=== PATIENT | female | born 1940 | race Caucasian/White ===

== ENCOUNTER 2023-12-18 11:29 | Day surgery (SDC) | payer MEDICARE, OTHER ==
[2023-12-18] VITALS (12 sets, daily range): BP systolic 95–129; BP diastolic 53–76; PULSE 77–97; RESP 13–24; TEMP 97.9; O2SAT 93–97
[~2023-12-18] VITALS: Ht 165.1 cm; Wt 72.8 kg
[2023-12-18] MEDS ORDERED: fentaNYL/PF 50MCG/1 ML 2ML syringe ONE (11:50)
[2023-12-18] MEDS ORDERED: LIDOcaine 1% (10mg/ml) 2ml vial ONE (11:50)
[2023-12-18] MEDS ORDERED: midazolam 1 mg/ML 2ml injection ONE ×2 (11:50→12:53)
[2023-12-18] MEDS ORDERED: verapamil 2.5 mg/ml inj IV ONE (11:50)
[2023-12-18] MEDS ORDERED: heparin 1,000unit/ml 10ml vial 10 ML ONE (11:51)
[2023-12-18] MEDS ORDERED: nitroGLYCERIN 500mcg/5mL D5W 5 ML IV ONE (11:51)
[2023-12-18] MEDS ORDERED: iohexol 350MG/ML 100ml bottle IV ONE (11:51)
[2023-12-18] MEDS ORDERED: HYDR-3973 PO (12:06)
[2023-12-18] MEDS ORDERED: AMLO5TAB PO (12:06)
[2023-12-18] MEDS ORDERED: ONDA4TAB12 PO (12:06)
[2023-12-18] MEDS ORDERED: MELO-102 PO (12:06)
[2023-12-18] MEDS ORDERED: THYR60TA2 (12:06)
[2023-12-18] MEDS ORDERED: LISI20TA28 PO (12:06)
[2023-12-18 12:24] LABS: BASOPHILS # (AUTO) 0.1 X10'3 (0-0.2); BASOPHILS % (AUTO) 0.9 % (0-1); EOSINOPHILS % (AUTO) 0.6 % (0-6); HEMATOCRIT 42.2 % (35.0-45.0); HEMOGLOBIN 14.2 g/dl (12.0-16.0); LYMPHOCYTES # (AUTO) 1.7 X10'3 (1.1-4.8); LYMPHOCYTES % (AUTO) 25.6 % (21-51); MEAN CORPUSCULAR HEMOGLOBIN 33.6 PG (27.0-31.0); MEAN CORPUSCULAR HGB CONC 33.6 g/dL (33.0-36.5); MEAN CORPUSCULAR VOLUME 99.9 FL (78-98); MEAN PLATELET VOLUME 7.7 FL (7.4-10.4); MONOCYTES # (AUTO) 0.7 X10'3 (0-0.9); MONOCYTES % (AUTO) 9.7 % (2-12); NEUTROPHILS # (AUTO) 4.2 X10'3 (1.8-7.7); NEUTROPHILS % (AUTO) 63.2 % (42-75); PLATELET COUNT 243 X10'3 (140-440); RED BLOOD COUNT 4.22 X10'6 (4.20-5.60); RED CELL DISTRIBUTION WIDTH 15.3 % (11.5-14.5); WHITE BLOOD COUNT 6.7 X10'3 (4.5-11.0)
[2023-12-18] MEDS: diphenhydrAMINE 25mg capsule PO PRN (12:24)
[2023-12-18] MEDS: normal saline 1,000 ML IV SCH (12:24)
[2023-12-18] MEDS: LORazepam 0.5 MG tablet PO PRN (12:24)
[2023-12-18 12:33] LABS: ALBUMIN 3.7 G/DL (3.4-5.0); ANION GAP 17 (8-16); BLOOD UREA NITROGEN 16 MG/DL (7-18); BUN/CREATININE RATIO 15.8 (10.0-20.0); CALCIUM 9.2 MG/DL (8.5-10.1); CHLORIDE 103 MMOL/L (99-107); CREATININE 1.01 MG/DL (0.40-0.90); GLUCOSE 101 MG/DL (70-104); POTASSIUM 4.1 MMOL/L (3.5-5.1); SODIUM 140 MMOL/L (135-145); TOTAL CARBON DIOXIDE 20.4 MMOL/L (24-32); eCRCL 39 ML/MIN; eGFR 52 ML/MIN
[2023-12-18 12:37] LABS: APTT 27 SECONDS (22-32); INR 1.1 INR; PROTHROMBIN TIME 11.1 SECONDS (9.0-12.0)
[2023-12-18 12:38] LABS: CHOL/HDL RATIO 2.4 (0.00-4.99); CHOLESTEROL 193 MG/DL (0-200); HDL CHOLESTEROL 79 MG/DL (35-60); LDL CHOLESTEROL 104 MG/DL (50-100); TRIGLYCERIDES 81 MG/DL (20-135)
[2023-12-18] MEDS ORDERED: HYDROcodone/acetaminophen 10/325mg tab PO PRN (13:35)
[2023-12-18] MEDS ORDERED: HYDROcodone/acetaminophen 5mg/325mg tablet PO PRN (13:35)
== END 2023-12-18 17:40 | disposition home or self-care (01) ==
LOC: SSTAY O 11:29
PROVIDERS: ATTEND Student in an Organized Health Care Education/Training Program
DX: R94.39 Abnormal result of other cardiovascular function study (principal); I12.9 Hypertensive chronic kidney disease with stage 1 through stage 4 chronic kidney disease, or unspecified chronic kidney disease; N18.9 Chronic kidney disease, unspecified; E78.00 Pure hypercholesterolemia, unspecified; E03.9 Hypothyroidism, unspecified; K21.9 Gastro-esophageal reflux disease without esophagitis; Z79.890 Hormone replacement therapy; Z79.891 Long term (current) use of opiate analgesic; Z79.899 Other long term (current) drug therapy; Z91.012 Allergy to eggs; Z91.011 Allergy to milk products
CPT/HCPCS: 36415; 80048; 80061; 85025; 85610; 85730; 93005; 93458; 99152; J1644; J2250; J3010; J3490; J7030; Q0163; Q9967; A6258; A6402; A6449; C1894